=== PATIENT | female | born 1945 | race Caucasian/White ===

== ENCOUNTER → 2017-04-22 | Outpatient (CLI) | payer MEDICARE, OTHER ==
[~2017-04-22] MED LIST: BUPIVACAINE MPF 0.5% 30 ML VIAL. ONE; CALC500T30 PO; ESOM40CA PO; MULT-18 PO; OMEG500C PO; RALO60TA PO; methylPREDNISolone ACETATE 80 MG/ML VIAL. ONE
== END | disposition home or self-care (01) ==
LOC: SURG 15:18
PROVIDERS: ATTEND Anesthesiology Pain Medicine
DX: M46.1 Sacroiliitis, not elsewhere classified (principal); M19.91 Primary osteoarthritis, unspecified site; K21.9 Gastro-esophageal reflux disease without esophagitis; Z90.49 Acquired absence of other specified parts of digestive tract; Z98.890 Other specified postprocedural states; Z88.1 Allergy status to other antibiotic agents
CPT/HCPCS: 20552; 77002; J1040; J3490

== ENCOUNTER → 2017-05-06 | Outpatient (CLI) | payer MEDICARE, OTHER ==
[~2017-05-06] MED LIST changes: +BUPIVACAINE MPF 0.25% 10 ML VIAL. ONE; -BUPIVACAINE MPF 0.5% 30 ML VIAL. ONE; +DEXAMETHASONE SOD PHOS 4 MG/ML VIAL ONE; +IOHEXOL 300 MG/ML 50 ML VIAL. ONE; +LIDOCAINE 1% PF 30 ML VIAL. ONE; -methylPREDNISolone ACETATE 80 MG/ML VIAL. ONE
== END | disposition home or self-care (01) ==
LOC: SURG 09:09
PROVIDERS: ATTEND Anesthesiology Pain Medicine
DX: M54.16 Radiculopathy, lumbar region (principal); M46.1 Sacroiliitis, not elsewhere classified; M19.90 Unspecified osteoarthritis, unspecified site; K21.9 Gastro-esophageal reflux disease without esophagitis; Z88.1 Allergy status to other antibiotic agents; Z98.890 Other specified postprocedural states
CPT/HCPCS: 64483; J1100; J2001; J3490; Q9967; 64484

== ENCOUNTER → 2020-02-29 | Outpatient (CLI) | payer MEDICARE, OTHER ==
[~2020-02-29] MED LIST changes: -BUPIVACAINE MPF 0.25% 10 ML VIAL. ONE; -DEXAMETHASONE SOD PHOS 4 MG/ML VIAL ONE; -IOHEXOL 300 MG/ML 50 ML VIAL. ONE; -LIDOCAINE 1% PF 30 ML VIAL. ONE
--- NOTE | 2020-02-29 12:33 | RAD ---
EXAM: Lumbar spine, 5 views. HISTORY: Pain. COMPARISON: None. FINDINGS: 5 views of the lumbar spine are obtained. There is lumbar levoscoliosis centered at L3-L4. There is degenerative endplate remodeling with disc space narrowing and spurring primarily along the right aspect of L3-L4. This corresponds with the level of maximum scoliotic concavity. There is no significant listhesis. No fracture is seen. IMPRESSION: 1. Degenerative change along the right aspect of L3-L4. 2. Scoliosis centered at L3-L4. Electronically signed by: Adrianna Barajas MD (02/29/2020 12:30 PM) [id number]
== END ==
LOC: DXRAD 11:33
PROVIDERS: ATTEND Chiropractor
DX: M47.816 Spondylosis without myelopathy or radiculopathy, lumbar region (principal); M41.86 Other forms of scoliosis, lumbar region
CPT/HCPCS: 72110

== ENCOUNTER → 2020-07-27 | Outpatient (CLI) | payer MEDICARE, OTHER ==
[~2020-07-27] MED LIST changes: +ALEN70TA3 PO; +CELE100C PO; +CHOL400T36 PO; +CYAN50008 PO; +DULO60CA6 PO; +L.AC1CAP6 PO; +PANT40TA3 PO
== END ==
LOC: LAB 10:00
PROVIDERS: ATTEND Nurse Anesthetist, Certified Registered
DX: Z01.818 Encounter for other preprocedural examination (principal); Z86.010 Personal history of colon polyps; Z20.828 Contact with and (suspected) exposure to other viral communicable diseases
CPT/HCPCS: U0003

== ENCOUNTER → 2020-07-31 | Day surgery (SDC) | payer MEDICARE, OTHER ==
[~2020-07-31] MED LIST changes: +IPRATRPIUM/ALBUTEROL 0.5/2.5MG 3 ML NEBU. NEB PRN; +IV RINGERS SOLUTION,LACTATED 1,000 ML IV SCH; +LIDOCAINE 2% PF 5 ML VIAL. ONE; +MIDAZOLAM HCL PF 2 MG/2 ML VIAL. IV ONE; +ONDANSETRON PF 4 MG/2 ML VIAL. IV PRN; +PROPOFOL 10,000 MCG/ML (20ML) VIAL IV ONE
[2020-07-31 09:55] VITALS: BP 130/87
== END | disposition home or self-care (01) ==
LOC: SURG 07:24
PROVIDERS: ATTEND Emergency Medicine
DX: Z12.11 Encounter for screening for malignant neoplasm of colon (principal); K64.8 Other hemorrhoids; K57.30 Diverticulosis of large intestine without perforation or abscess without bleeding; M79.10 Myalgia, unspecified site; M19.90 Unspecified osteoarthritis, unspecified site; E03.0 Congenital hypothyroidism with diffuse goiter; K21.9 Gastro-esophageal reflux disease without esophagitis; Z86.010 Personal history of colon polyps; Z79.899 Other long term (current) drug therapy; Z91.040 Latex allergy status; Z88.8 Allergy status to other drugs, medicaments and biological substances; Z88.1 Allergy status to other antibiotic agents; Z98.890 Other specified postprocedural states; Z90.49 Acquired absence of other specified parts of digestive tract
CPT/HCPCS: G0105; J2001; J2704; J7120; 45378; 45380

== ENCOUNTER → 2021-02-12 | Outpatient (CLI) | payer MEDICARE, OTHER ==
[2020-07-31 09:55] VITALS: BP 130/87
[~2021-02-12] MED LIST changes: -CYAN50008 PO; +CYAN50009 PO; -IPRATRPIUM/ALBUTEROL 0.5/2.5MG 3 ML NEBU. NEB PRN; -IV RINGERS SOLUTION,LACTATED 1,000 ML IV SCH; -LIDOCAINE 2% PF 5 ML VIAL. ONE; -MIDAZOLAM HCL PF 2 MG/2 ML VIAL. IV ONE; -ONDANSETRON PF 4 MG/2 ML VIAL. IV PRN; -PROPOFOL 10,000 MCG/ML (20ML) VIAL IV ONE
--- NOTE | 2021-02-12 17:01 | RAD ---
EXAMINATION: CT HEAD/BRAIN WO (CT HEAD WITHOUT IV CONTRAST) CLINICAL HISTORY: TEMPORAL PAIN AND HEADACHES FOR A MONTH TECHNIQUE: Serial axial images without IV contrast were obtained from the vertex to the foramen magnu m. CT Dose Reduction Employed: One or more of the following individualized dose reduction techniques wer e utilized for this examination: 1. Automated exposure control 2. Adjustment of the mA and/or kV ac cording to patient size 3. Use of iterative reconstruction technique. COMPARISON: None FINDINGS: Acute Change: No evidence of an acute infarct or other acute parenchymal process. Hemorrhage: No evidence of acute intracranial hemorrhage. Mass Lesion/Mass Effect: No evidence of intracranial mass or extraaxial fluid collection. No signific ant mass effect. Parenchyma: No significant volume loss. Parenchyma otherwise within normal limits for age. Ventricles: Ventricles within normal limits for age. Paranasal Sinuses and Skull Base: Visualized paranasal sinuses clear. Visualized skull base and soft tissues unremarkable. IMPRESSION: No evidence of acute intracranial abnormality. Electronically signed by: Yanick Vail DO (02/12/2021 4:59 PM) RAMAN
== END ==
LOC: CT 15:54
PROVIDERS: ATTEND Specialist
DX: R51.9 Headache, unspecified (principal)
CPT/HCPCS: 70450

== ENCOUNTER 2021-03-17 19:14 | Emergency (ER) | payer MEDICARE, OTHER ==
[~2021-03-17] VITALS: Ht 154.9 cm; Wt 65.2 kg
--- NOTE | 2021-03-17 19:57 | PHYS DOC ---
Past History Past Medical History: GERD, Other (SHARI MILNER APRN) Past Surgical History: Oophorectomy, Tonsillectomy (SHARI MILNER APRN) Smoking: Non-smoker Alcohol Use: None Drug Use: None (SHARI MILNER APRN) General Adult EDM: Chief Complaint: NAUSEA/VOMITING/DIARRHEA HPI: HPI: Patient is a 75-year-old female presents with nausea/vomiting/diarrhea since 130 this morning. Denies fever. Reports abdominal pain. Patient states "my has been also started having the same symptoms about 2 hours after I did last night". "We went to a wedding, so we did not know if we ate something bad there or if we were exposed by a granddaughter who also was not feeling well". Patient reports she has been unable to keep any water or food down today. (SHARI MILNER APRN) Review of Systems: Review of Systems: Constitutional: Denies fever or chills Eyes: Denies change in visual acuity HENT: Denies nasal congestion or sore throat Respiratory: Denies cough or shortness of breath Cardiovascular: Denies chest pain or edema GI: Reports abdominal cramping, nausea, vomiting, diarrhea : Denies dysuria Musculoskeletal: Denies back pain or joint pain Integument: Denies rash Neurologic: Denies headache, focal weakness or sensory changes Endocrine: Denies polyuria or polydipsia Lymphatic: Denies swollen glands Psychiatric: Denies depression or anxiety (SHARI MILNER APRN) Allergies: Allergies: Allergies Coded Allergies Type Severity Reaction Last Updated Verified bisacodyl Allergy Intermediate Headache/Nausea 07/31/20 Yes erythromycin base Allergy Intermediate 07/31/20 Yes latex Allergy Intermediate Rash 07/31/20 Yes (SHARI MILNER APRN) Physical Exam: PE: Constitutional: Well developed, well nourished, no acute distress, non-toxic appearance. [] HENT: Normocephalic, atraumatic, bilateral external ears normal, oropharynx moist, no oral exudates, nose normal. [] Eyes: PERRLA, EOMI, conjunctiva normal, no discharge. [] Neck: Normal range of motion, no tenderness, supple, no stridor. [] Cardiovascular:Heart rate regular rhythm, no murmur [] Lungs & Thorax: Bilateral breath sounds clear to auscultation [] Abdomen: Bowel sounds normal, soft, generalized tenderness Skin: Warm, dry, no erythema, no rash. [] Back: No tenderness, no CVA tenderness. [] Extremities: No tenderness, no cyanosis, no clubbing, ROM intact, no edema. [] Neurologic: Alert and oriented X 3, normal motor function, normal sensory f unction, no focal deficits noted. [] Psychologic: Affect normal, judgement normal, mood normal. [] (SHARI MILNER APRN) EKG: EKG: [] (SHARI MILNER APRN) EKG: My interpretation EKG shows a sinus rhythm at 77 bpm. Does have prolonged QT interval of 430 ms and a QTC of 489 ms. No findings of acute STEMI of contralateral changes. Time of EKG 2258 hrs. (GERHARD KELLOGG MD) Radiology/Procedures: Radiology/Procedures: [] (SHARI MILNER APRN) Radiology/Procedures: [place] [address] IMAGING REPORT Signed PATIENT: PEPE GAVIN GACCOUNT: [id number] : 1945 LOCATION: ER AGE: 75 SEX: F EXAM STATUS: REG ER ORD. PHYSICIAN: SHARI MILNER APRN REASON: abdominal pain. h/o diverticulitis PROCEDURE: CT ABDOMEN PELVIS WO CONTRAST Exam Date: 03/17/2021 10:[address] ABDOMEN+PELVIS WO Indication: Reason: abdominal pain. h/o diverticulitis / Spl. Instructions: / History: . TECHNIQUE: CT examination of the abdomen and pelvis was performed without oral or intravenous contrast. One or more of the following dose reduction techniques were utilized: *Automated exposure control (AEC) *Adjustment of mA and/or kV according to patient size *Use of iterative reconstruction technique *CT scan done according to ALARA, or ALARA/IMAGE GENTLY FINDINGS: The visualized lung bases are clear. Status post cholecystectomy. The liver, spleen, pancreas, and adrenal glands are normal. The kidneys are normal bilaterally. No hydronephrosis or hydroureter is seen. No urinary tract calculi are seen. Urinary bladder is normal in appearance. Diverticulosis coli is seen without bowel obstruction or inflammation. The appendix is normal. Mild atherosclerotic calcifications are seen. No lymphadenopathy or ascites is seen. Degenerative changes are seen in the spine. IMPRESSION: No acute intra-abdominal pathology. Normal appearance of the kidneys and bladder. No hydronephrosis or hydroureter. No urinary tract calculi. Electronically signed by: Doreen Barillas MD (03/17/2021 10:30 PM) [facility] DICTATED AND SIGNED BY: DOREEN BARILLAS MD DATE: 03/17/212225 CC: GERHARD KELLOGG MD; SHARI MILNER APRN; SANDI ENNIS MD ~MTH0 0 (GERHARD KELLOGG MD) Heart Score: C/O Chest Pain: No Risk Factors: Risk Factors: DM, Current or recent (<one month) smoker, HTN, HLP, family history of CAD, obesity. Risk Scores: Score 0 - 3: 2.5% MACE over next 6 weeks - Discharge Home Score 4 - 6: 20.3% MACE over next 6 weeks - Admit for Clinical Observation Score 7 - 10: 72.7% MACE over next 6 weeks - Early Invasive Strategies (SHARI MILNER APRN) Course & Med Decision Making: Course & Med Decision Making Pertinent Labs and Imaging studies reviewed. (See chart for details) [] 75-year-old female presents with nausea/vomiting/diarrhea since 130 this morning. Patient states that she woke up vomiting with abdominal cramping. Patient reports her also started vomiting and having diarrhea about 2 hours later. States she has been unable to keep any liquids or food down today. Patient is afebrile. Alert and oriented x3. Hemodynamically stable. Patient given 4 mg of Zofran, 10 IM Bentyl, NS bolus.Patient given 4 mg morphine. Patient is still reporting pain assessment. Nausea has improved.Patient given [address] of abdomen and pelvis ordered to rule out any acute abnormalities. Patient reports that she has a history of diverticulitis. (SHARI MILNER APRN) Course & Med Decision Making See [employer] chart for detail prior shift change. Pt. at time discharge report resolution of N/V/ and abdomen pain. Pt. to remain on clear fluid diet x 48 hrs. No milk products or solids. Allow bowel rest. Take tylenol; and ibuprofen for pain. Zofran as needed for N/V Take OTC Pepto-Bismol if she develops diarrhea. Follow-up primary care. Return if any concerns. Impression: 1. Acute gastroenteritis-nausea and vomiting 2. Dehydration (GERHARD KELLOGG MD) Devante Disclaimer: Devante Disclaimer: This electronic medical record was generated, in whole or in part, using a voice recognition dictation system. (SHARI MILNER APRN) Departure Departure: Impression: Primary Impression: Gastroenteritis Disposition: HOME / SELF CARE / HOMELESS Condition: STABLE Referrals: SANDI ENNIS MD (PCP) Patient Instructions: Viral Gastroenteritis, [id number] Additional Instructions: You were seen in the emergency room for nausea/vomiting/diarrhea. You most likely have gastroenteritis. You were given Zofran to help with symptoms. Make sure that you are drinking plenty of fluids. You can take Tylenol and ibuprofen if you have a fever. If symptoms worsen please follow-up with your PCP or return to the emergency room. EMERGENCY DEPARTMENT GENERAL DISCHARGE INSTRUCTIONS Thank you for coming to [facility] (ED) today and trusting us with you care. We trust that you had a positivie experience in our Emergency Department. If you wish to speak to the department management, you may call the director at [phone]. YOUR FOLLOW UP INSTRUCTIONS ARE FOLLOWS: 1. Do you have a private Doctor? If you do not have a private doctor, please ask for a resource list of physicians or clinics that may be able to assist you with follow up care. 2. The Emergency Physician has interpreted your x-rays. The X-Ray specialist will also review them. If there is a change in the findings, you will be notified in 48 hours when at all possible. 3. A lab test or culture has been done, your results will be reviewed and you will be notified if you need a change in treatment. ADDITIONAL INSTRUCTIONS AND INFORMATION: 1. Your care today has been supervised by a physician who is specially trained in emergency care. Many problems require more than one evaluation for a complete diagnosis and treatment. We recommend that you schedule your follow up appointment as recommended to ensure complete treatment of you illness or injury. If you are unable to obtain follow up care and continue to have a problem, or if your condition worsens, we recommend that you return to the ED. 2. We are not able to safely determine your condition over the phone nor are we able to give sound medical advice over the phone. For these safety reasons, if you call for medical advice we will ask you to come to the ED for further evaluation. 3. If you have any questions regarding these discharge instructions please call the ED at [phone]. SAFETY INFORMATION: In the interest of safety, wellness, and injury prevention; we encourage you to wear your sealbelt, if you smoke; quite smoking, and we encourage family to use a protective helmet for bicycling and other sporting events that present an increased risk for head injury. IF YOUR SYMPTOMS WORSEN OR NEW SYMPTOMS DEVELOP, OR YOU HAVE CONCERNS ABOUT YOUR CONDITION; OR IF YOUR CONDITION WORSENS WHILE YOU ARE WAITING FOR YOUR FOLLOW UP APPOINTMENT; EITHER CONTACT YOUR PRIMARY CARE DOCTOR, THE PHYSICIAN WHOSE NAME AND NUMBER YOU WERE GIVEN, OR RETURN TO THE ED IMMEDIATELY. Attending Signature Attending Signature I have participated in the care of this patient and I have reviewed and agree with all pertinent clinical information above including history, exam, and recommendations. (GERHARD KELLOGG MD) Dragon Disclaimer This chart was dictated in whole or in part using Voice Recognition software in a busy, high-work load, and often noisy Emergency Department environment. It may contain unintended and wholly unrecognized errors or omissions. (GERHARD KELLOGG MD) SHARI MILNER APRN Mar 17, 2021 19:57 GERHARD KELLOGG MD Mar 17, 2021 22:45
[2021-03-17] MEDS ORDERED: IV NORMAL SALINE 1,000ML 1,000 ML IV ONE (20:00)
[2021-03-17] MEDS ORDERED: ONDANSETRON PF 4 MG/2 ML VIAL. IVP ONE ×2 (20:00→21:30)
[2021-03-17] MEDS ORDERED: DICYCLOMINE 20 MG/2 ML VIAL. IM ONE (20:00)
[2021-03-17] MEDS ORDERED: ONDA4TAB7 PO (20:15)
[2021-03-17 20:44] LABS: BASO % 0 % (0-3); EOS # 0.1 x10^3/uL (0.0-0.7); EOS % 1 % (0-3); HEMATOCRIT 44.8 % (36.0-47.0); HEMOGLOBIN 15.3 g/dL (12.0-15.5); LYMPH # 0.5 x10^3/uL (1.0-4.8); LYMPH % 6 % (24-48); MEAN CORPUSCULAR HEMOGLOBIN 32 pg (25-35); MEAN CORPUSCULAR HGB CONC 34 g/dL (31-37); MEAN CORPUSCULAR VOLUME 93 fL (79-100); MONO # 0.4 x10^3/uL (0.0-1.1); MONO % 5 % (0-9); NEUT # 7.5 x10^3uL (1.8-7.7); NEUT % 88 % (31-73); PLATELET COUNT 283 x10^3/uL (140-400); RED BLOOD COUNT 4.82 x10^6/uL (3.50-5.40); RED CELL DISTRIBUTION WIDTH 13.8 % (11.5-14.5); WHITE BLOOD COUNT 8.5 x10^3/uL (4.0-11.0)
[2021-03-17 20:51] LABS: CALCIUM 8.3 mg/dL (8.5-10.1); CREATININE 0.8 mg/dL (0.6-1.0); GFR 70.3; POTASSIUM 3.9 mmol/L (3.5-5.1)
[2021-03-17] MEDS ORDERED: MORPHINE SULFATE 4 MG/ML DISP.SYRIN. IV ONE ×2 (21:00→21:30)
--- NOTE | 2021-03-17 22:32 | RAD ---
Exam Date: 03/17/2021 10:[address] ABDOMEN+PELVIS WO Indication: Reason: abdominal pain. h/o diverticulitis / Spl. Instructions: / History: . TECHNIQUE: CT examination of the abdomen and pelvis was performed without oral or intravenous contra st. One or more of the following dose reduction techniques were utilized: *Automated exposure control (AEC) *Adjustment of mA and/or kV according to patient size *Use of iterative reconstruction technique *CT scan done according to ALARA, or ALARA/IMAGE GENTLY FINDINGS: The visualized lung bases are clear. Status post cholecystectomy. The liver, spleen, pancreas, and adrenal glands are normal. The kidneys are normal bilaterally. No hydronephrosis or hydroureter is seen. No urinary tract calc anjelica are seen. Urinary bladder is normal in appearance. Diverticulosis coli is seen without bowel obstruction or inflammation. The appendix is normal. Mild atherosclerotic calcifications are seen. No lymphadenopathy or ascites is seen. Degenerative changes are seen in the spine. IMPRESSION: No acute intra-abdominal pathology. Normal appearance of the kidneys and bladder. No hydronephrosis or hydroureter. No urinary tract ca lculi. Electronically signed by: Bereket Barillas MD (03/17/2021 10:30 PM) [facility] [place]
[2021-03-17] MEDS ORDERED: diphenhydrAMINE 50 MG/ML VIAL IVP ONE (23:00)
[2021-03-17] MEDS ORDERED: IV RINGERS SOLUTION,LACTATED 1,000 ML IV ONE (23:00)
[2021-03-17] MEDS ORDERED: MORPHINE SULFATE 10 MG/ML SYRINGE. SQ ONE (23:00)
[2021-03-17] MEDS ORDERED: FAMOTIDINE 20 MG/2 ML VIAL IVP ONE (23:00)
[2021-03-17] MEDS ORDERED: PROCHLORPERAZINE 10 MG/2 ML VIAL. IV ONE (23:00)
[2021-03-17 23:21] LABS: ALBUMIN 3.9 g/dL (3.4-5.0); DIRECT BILIRUBIN 0.2 mg/dL (0.0-0.2); TOTAL BILIRUBIN 0.8 mg/dL (0.2-1.0); TOTAL PROTEIN 7.1 g/dL (6.4-8.2)
[2021-03-18 01:10] VITALS: BP 104/56
[2021-03-18] MEDS ORDERED: FLUC100T4 PO (01:28)
[2021-03-18] MEDS ORDERED: CLOTRIMAZOLE TROCHE PO (01:28)
--- NOTE | 2021-03-18 01:31 | EKG ---
[address] [address] Test Date: 2021-03-17 Test Time: 22:58:20 Pat Name: PEPE GAVIN Department: Room: Gender: F Events Administrative Assistant: NEGRITO : 1945 Requested By: GERHARD KELLOGG Order Number: [id number] Reading MD: Measurements Intervals [place] Rate: 77 P: 44 VA: 156 QRS: 57 QRSD: 72 T: 70 QT: 430 QTc: 489 Interpretive Statements SINUS RHYTHM PROLONGED QT NO SPECIFIC ECG ABNORMALITIES RI6.02 No previous ECG available for comparison
== END 2021-03-18 01:15 | disposition home or self-care (01) ==
LOC: ER 19:14
DX: K52.9 Noninfective gastroenteritis and colitis, unspecified (principal); K21.9 Gastro-esophageal reflux disease without esophagitis; Z90.49 Acquired absence of other specified parts of digestive tract; Z91.040 Latex allergy status
CPT/HCPCS: 36415; 74176; 80048; 80076; 82150; 83690; 85025; 93005; 96361; 96372; 96374; 96375; 96376; 99285; J0500; J0780; J1200; J2270; J2405; J3490; J7030; J7120

== ENCOUNTER → 2021-04-04 | Outpatient (CLI) | payer MEDICARE, OTHER ==
[2021-03-18 01:10] VITALS: BP 104/56
[~2021-04-04] MED LIST changes: +CLOTRIMAZOLE TROCHE PO; +FLUC100T4 PO; +IOHEXOL 240 MG/ML 50ML VIAL. ONE; +IOHEXOL 240 MG/ML 50ML VIAL. PO ONE; +ONDA4TAB7 PO
[2021-04-04] MEDS: IOHEXOL 300 MG/ML 75 ML VIAL. IV ONE (11:18)
--- NOTE | 2021-04-04 11:36 | RAD ---
EXAM: Abdomen and pelvis CT with intravenous contrast. HISTORY: Diverticulitis. TECHNIQUE: Computed tomographic images of the abdomen and pelvis were obtained following the administ ration of intravenous contrast. Multiplanar reformatting was performed. *One or more of the following individualized dose reduction techniques were utilized for this examina tion: 1. Automated exposure control. 2. Adjustment of the mA and/or kV according to patient size. 3. Use of iterative reconstruction technique. COMPARISON: 03/17/2021. FINDINGS: Evaluation of the lower thorax demonstrates no infiltrate or pleural effusion. There is med ial right middle lobe pleural parenchymal scarring and posterior dependent atelectasis. No suspicious hepatic lesion is seen. The gallbladder is surgically absent. The pancreas, spleen, stomach, adrenal glands and kidneys are unremarkable. The appendix is surgically absent. There is moderate stool throughout the colon. There is distal colo ramirez diverticulosis. There is no convincing diverticulitis. There is no bowel obstruction. The urinary bladder is unremarkable. The uterus is unremarkable. There is a benign calcification within the righ t adnexa, likely due to a gonadal vein phlebolith. There is lumbar scoliosis. There is degenerative c hange primarily at L3-L4. There is no acute osseous finding. The aorta is normal in caliber. There is no lymphadenopathy. IMPRESSION: 1. No convincing acute abdominal or pelvic finding. 2. Distal colonic diverticulosis. Electronically signed by: Adrianna Barajas MD (04/04/2021 11:33 AM) [id number]
== END ==
LOC: CT 10:06
PROVIDERS: ATTEND Physician Assistant
DX: K57.30 Diverticulosis of large intestine without perforation or abscess without bleeding (principal); M41.86 Other forms of scoliosis, lumbar region; M47.896 Other spondylosis, lumbar region; R19.7 Diarrhea, unspecified; Z90.49 Acquired absence of other specified parts of digestive tract
CPT/HCPCS: 74177; Q9967

== ENCOUNTER → 2021-12-19 | Outpatient (CLI) | payer MEDICARE, OTHER ==
[~2021-12-19] MED LIST changes: -DULO60CA6 PO; +DULO60CA7 PO; -FLUC100T4 PO; +FLUC100T6 PO; -IOHEXOL 240 MG/ML 50ML VIAL. PO ONE; +IOHEXOL 300 MG/ML 75 ML VIAL. IV ONE
[2021-12-19] MEDS: IOHEXOL 240 MG/ML 50ML VIAL. PO ONE (12:42)
--- NOTE | 2021-12-19 13:26 | RAD ---
EXAM: Abdomen and pelvis CT without intravenous contrast. HISTORY: Right lower quadrant pain. Diarrhea. TECHNIQUE: Computed tomographic images of the abdomen and pelvis were obtained without contrast. Mult iplanar reformatting was performed. *One or more of the following individualized dose reduction techniques were utilized for this examina tion: 1. Automated exposure control. 2. Adjustment of the mA and/or kV according to patient size. 3. Use of iterative reconstruction technique. COMPARISON: 04/04/2021. FINDINGS: Evaluation of the lower thorax is no infiltrate or pleural effusion. There is medial right middle lobe pleural parenchymal scarring. There is a calcified granuloma within the right lower lobe. The heart is normal in size. There is no suspicious hepatic lesion. The gallbladder is surgically ab sent. The pancreas, spleen, adrenal glands and kidneys are unremarkable. There is no appendicitis. There is distal colonic diverticulosis. There is no convincing acute divert iculitis. There is distal colonic wall thickening relative underdistention and likely sequela of prio r inflammation. The bladder is unremarkable. There is a nabothian cyst within the cervix. The adnexal regions are unremarkable. The aorta is normal in caliber. There is no lymphadenopathy. There is dege nerative change at L3-L4. There is no acute or suspicious osseous finding. IMPRESSION: 1. Colonic diverticulosis, without convincing appendicitis. There is mild circumferential partial dis arcelia colonic wall thickening likely due underdistention or the sequela of prior inflammation. There is no surrounding inflammatory stranding to suggest acute colitis. 2. No convincing acute abdominal or pelvic finding. Electronically signed by: Adrianna Barajas MD (12/19/2021 1:24 PM) [id number]
== END ==
LOC: RAD 10:59
PROVIDERS: ATTEND Physician Assistant
DX: K57.30 Diverticulosis of large intestine without perforation or abscess without bleeding (principal); J84.10 Pulmonary fibrosis, unspecified; N88.8 Other specified noninflammatory disorders of cervix uteri; M47.816 Spondylosis without myelopathy or radiculopathy, lumbar region; Z90.49 Acquired absence of other specified parts of digestive tract
CPT/HCPCS: 74176; Q9966